=== PATIENT | female | born 1960 | race Caucasian/White ===

== ENCOUNTER 2019-06-21 09:40 | Day surgery (SDC) | payer OTHER ==
[2019-06-21] MEDS ORDERED: PROPOFOL 20 ML (11:40)
== END 2019-06-21 16:45 | disposition home or self-care (01) ==
LOC: GIL 09:40
DX: Z12.11 Encounter for screening for malignant neoplasm of colon (principal); D12.4 Benign neoplasm of descending colon; E11.9 Type 2 diabetes mellitus without complications; I10 Essential (primary) hypertension; E03.9 Hypothyroidism, unspecified; Z79.4 Long term (current) use of insulin; Z79.84 Long term (current) use of oral hypoglycemic drugs
CPT/HCPCS: 45380; 82962; 88305